=== PATIENT | male | born 1995 | race Caucasian/White ===

== ENCOUNTER 2023-12-02 15:53 | Emergency (ER) | payer MEDICAID ==
[~2023-12-02] VITALS: Ht 162.6 cm; Wt 69.1 kg
[~2023-12-02 15:53] MED LIST: IBUP-1573 PO; PRED10TA PO
[2023-12-02 15:55] VITALS: BP 126/66; PULSE 94; RESP 16; O2SAT 99
[2023-12-02 17:12] VITALS: TEMP 98.5
== END 2023-12-02 17:13 | disposition home or self-care (01) ==
LOC: ER 15:54
DX: S62.327A Displaced fracture of shaft of fifth metacarpal bone, left hand, initial encounter for closed fracture (principal); Z79.1 Long term (current) use of non-steroidal anti-inflammatories (NSAID); Z79.899 Other long term (current) drug therapy; X58.XXXA Exposure to other specified factors, initial encounter; Y93.89 Activity, other specified; Y92.89 Other specified places as the place of occurrence of the external cause; Y99.8 Other external cause status
CPT/HCPCS: 29125; 73130; 99283; A6449